=== PATIENT | female | born 1940 | race Caucasian/White ===

== ENCOUNTER → 2017-10-04 | Outpatient (CLI) | payer MEDICARE, BC ==
--- NOTE | 2017-10-05 20:39 | US ---
EXAMINATION TYPE: Ultrasound MSK bilateral ankles, Achilles tendons. DATE OF EXAM: 10/04/2017 COMPARISON: NONE CLINICAL HISTORY: 76-year-old female M25.471, M25.472 Bilateral ankle edema. Patient was being treate d with fluoroquinolones. TECHNIQUE: Multiple sonographic images of the bilateral posterior ankles for assessment of the Achill es tendons. FINDINGS: Right: Marked diffuse thickening of the Achilles tendon measuring up to 1.2 cm relatively sparing the insert ional distal most fibers. Approximately 4 cm above the insertion just above the level of the posterior malleolus, there is a th rough and through tear along the lateral most margin of the Achilles tendon measuring 3 mm wide and s ome retracted fibers by 6 mm. Lateral subcutaneous soft tissue swelling is noted as well as small effusion in the retrocalcaneal bu rsa. Left: Marked diffuse thickening of the Achilles tendon with the most severe thickening measuring up to 1.3 cm in thickness located 6 cm above the Achilles insertion along the proximal third fibers. More sever e focal tendinosis involving some of the superficial fibers which are hypoechoic. There is effusion i n the retrocalcaneal bursa but no discrete tear identified this time. IMPRESSION: 1. Marked diffuse bilateral Achilles tendinosis measuring up to 1.3 cm in thickness. 2. There is a small, 3 mm wide, through and through tear involving the lateral margin of the right Ac hilles tendon with retracted fibers by 6 mm. 3. No evidence for Achilles rupture at this time. 4. Small effusions in the retrocalcaneal bursa. Some lateral subcutaneous soft tissue swelling on the right.
== END | disposition home or self-care (01) ==
LOC: RADUSWWP 09:48
PROVIDERS: ATTEND Internal Medicine
DX: S86.011A Strain of right Achilles tendon, initial encounter (principal); M67.971 Unspecified disorder of synovium and tendon, right ankle and foot; M67.972 Unspecified disorder of synovium and tendon, left ankle and foot; M25.471 Effusion, right ankle; M25.472 Effusion, left ankle